=== PATIENT | female | born 1990 | race Caucasian/White ===

== ENCOUNTER 2019-02-12 09:37 | Emergency (ER) | payer SELFPAY ==
[~2019-02-12] VITALS: Ht 170.2 cm; Wt 69.0 kg
[2019-02-12 09:44] VITALS: BP 133/82
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
[2019-02-12] MEDS ORDERED: DIPH25CA61 PO (10:03)
--- NOTE | 2019-02-12 10:42 | NUR ---
PATIENT BACK FROM XRAY, PATIENT AMB WITH STEADY GAIT BACK TO [facility] WITH FREIGHT AGENT.
--- NOTE | 2019-02-12 11:47 | NUR ---
TASK RN:Patient/Caregiver given discharge instructions and they have confirmed that they understand the instructions. Patient ambulatory with steady gait.
== END 2019-02-12 13:05 | disposition home or self-care (01) ==
LOC: ED 11:50
DX: S43.52XA Sprain of left acromioclavicular joint, initial encounter (principal); Z90.710 Acquired absence of both cervix and uterus; Z87.891 Personal history of nicotine dependence; X58.XXXA Exposure to other specified factors, initial encounter; Y93.89 Activity, other specified; Y92.89 Other specified places as the place of occurrence of the external cause; Y99.8 Other external cause status
CPT/HCPCS: 29105; 99283

== ENCOUNTER 2019-04-14 10:52 | Emergency (ER) | payer SELFPAY ==
[~2019-04-14] VITALS: Ht 172.7 cm; Wt 78.4 kg
[~2019-04-14 10:52] MED LIST: DIPH25CA61 PO
[2019-04-14 10:58] VITALS: BP 155/98
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
--- NOTE | 2019-04-14 12:10 | NUR ---
DISCHARGE INSTRUCTIONS REVIEWED
== END 2019-04-14 12:16 | disposition home or self-care (01) ==
LOC: ED 11:34
DX: J06.9 Acute upper respiratory infection, unspecified (principal); R07.89 Other chest pain
CPT/HCPCS: 71046; 99283

== ENCOUNTER 2019-06-15 19:00 | Emergency (ER) | payer SELFPAY ==
[~2019-06-15] VITALS: Ht 170.2 cm; Wt 75.4 kg
--- NOTE | 2019-06-15 19:52 | NUR ---
PT AMBULATORY TO ROOM WITHS TEADY GAIT.
[2019-06-15] MEDS ORDERED: SLEEPING PILL (20:20)
[2019-06-15] MEDS ORDERED: CELEXA (20:20)
--- NOTE | 2019-06-15 20:21 | NUR ---
PT C/O INCREASE ALL OVER ABD PAIN OVER LAST COUPLE DAYS. PT HAD RECTAL BLEEDING FOR TWO DAY, 2 WEEKS AGO. HX BLEEDING DISORDER. CONNECTED TO MONITORING. PIV PLACED. LABS DRAWN. URINE COLLECTED AND SENT TO LAB. SPOUSE AT BEDSIDE. CALL LIGHT IN REACH.
[2019-06-15 20:28] LABS: HCG UR SG 1.017 (1.003-1.030); MICROSCOPIC NOT IND
[2019-06-15 20:30] LABS: CULTURE INDICATED? NO
[2019-06-15 20:50] LABS: BASOPHILS # (AUTO) 0.02 x10^3/uL (0-0.1); BASOPHILS % (AUTO) 0 % (0-1); EOSINOPHILS # (AUTO) 0.06 x10^3/uL (0-0.4); EOSINOPHILS % (AUTO) 1 % (1-7); LYMPHOCYTES # (AUTO) 2.26 x10^3/uL (1-3.4); LYMPHOCYTES % (AUTO) 31 % (22-44); MD NO; MEAN CORPUSCULAR HEMOGLOBIN 30.9 pg (27.0-34.8); MEAN CORPUSCULAR HGB CONC 33.6 g/dL (32.4-35.8); MEAN PLATELET VOLUME 8.4 fL (7.4-10.4); MONOCYTES # (AUTO) 0.71 x10^3/uL (0.2-0.8); MONOCYTES % (AUTO) 10 % (2-9); NEUTROPHILS # (AUTO) 4.37 x10^3/uL (1.8-6.8); NEUTROPHILS % (AUTO) 59 % (42-75); PLATELET COUNT 269 x10^3/uL (130-400); RED BLOOD COUNT 5.37 x10^6/uL (3.82-5.3); RED CELL DISTRIBUTION WIDTH 12.3 % (9.6-15.2)
[2019-06-15] MEDS ORDERED: MORPHINE SULFATE 4 MG/ML, 1ML ONE (20:52)
[2019-06-15] MEDS ORDERED: ONDANSETRON 2MG/ML, 2ML ONE (20:52)
--- NOTE | 2019-06-15 20:55 | NUR ---
PT TAKEN TO US
[2019-06-15] MEDS ORDERED: SODIUM CHLORIDE 0.9% 1,000ML IVBOLUS ONE (21:00)
[2019-06-15] MEDS ORDERED: SODIUM CHLORIDE FLUSH 10ML SYR IVF ONE (21:00)
[2019-06-15] MEDS ORDERED: ONDANSETRON 2MG/ML, 2ML IVPush ONE (21:00)
[2019-06-15] MEDS ORDERED: MORPHINE SULFATE 4 MG/ML, 1ML IVPush PRN (21:00)
[2019-06-15 21:01] LABS: INTERNATIONAL NORMALIZED RATIO 0.92 (0.93-1.1); PROTHROMBIN TIME 9.7 Seconds (9.6-11.5)
[2019-06-15 21:02] LABS: ALANINE AMINOTRANSFERASE 26 U/L (12-78); ALBUMIN 4.5 g/dL (3.4-5.0); ANION GAP 7 mmol/L (5-15); CHLORIDE 105 mmol/L (98-107); CREATININE 0.93 mg/dL (0.55-1.02)
[2019-06-15 21:04] LABS: ALKALINE PHOSPHATASE 78 U/L (45-117); BILIRUBIN,TOTAL 0.5 mg/dL (0.2-1.0); TOTAL PROTEIN 8.8 g/dL (6.4-8.2)
--- NOTE | 2019-06-15 21:14 | NUR ---
MEDS ADMIN PER JUN. PT RESTING COMFORTABLY ON GURWARWICK. ARIAN.
--- NOTE | 2019-06-15 21:23 | NUR ---
ALL RESULTS ARE BACK AT THIS TIME. CHART UP FOR RECHECK. THIS NURSE AT BEDSIDE DURING EKG THAT WAS COMPLETED BY DIE TURNER.
[2019-06-15 21:54] VITALS: BP 133/85
--- NOTE | 2019-06-15 21:54 | NUR ---
PT RESTING COMFORTABLY ON GURNEY. NADN. PT STATES PAIN IS BEARABLE AFTER PAIN MEDS.
--- NOTE | 2019-06-15 21:58 | NUR ---
REPORT GIVEN TO ALEX FIGUEROA
--- NOTE | 2019-06-15 22:00 | NUR ---
BRETT IN ROOM AT THIS TIME TO DISCUSS RESULTS WITH PT.
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
== END 2019-06-15 22:50 | disposition home or self-care (01) ==
LOC: ED 21:47
DX: K59.00 Constipation, unspecified (principal); R10.11 Right upper quadrant pain; R10.31 Right lower quadrant pain; Z87.891 Personal history of nicotine dependence; Z90.710 Acquired absence of both cervix and uterus
CPT/HCPCS: 36415; 74021; 76700; 80053; 81003; 81025; 83690; 85025; 85610; 85730; 93005; 96374; 96375; 99285; J2270; J2405; J7030

== ENCOUNTER 2019-09-11 17:24 | Emergency (ER) | payer MEDICAID ==
[~2019-09-11] VITALS: Ht 170.2 cm; Wt 74.0 kg
[~2019-09-11 17:24] MED LIST changes: +CELEXA; +SLEEPING PILL
[2019-09-11] MEDS ORDERED: MORPHINE SULFATE 4 MG/ML, 1ML ONE (17:52)
[2019-09-11] MEDS ORDERED: SILVER SULF. CRM 1% , 25GM TP ONE (18:00)
[2019-09-11] MEDS ORDERED: MORPHINE SULFATE 4 MG/ML, 1ML IVPush PRN (18:00)
--- NOTE | 2019-09-11 18:00 | NUR ---
WEAVING INSPECTOR: MEDICATED PT PER ORDERS FOR PAIN 01/18
[2019-09-11] MEDS ORDERED: SILVER SULF. CRM 1% , 25GM ONE (18:14)
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
--- NOTE | 2019-09-11 18:38 | NUR ---
PT STATES PAIN DECREASED, MEDICATION EFFECTION. PT REMAINS ON MONITORS, VSS.
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
[2019-09-11 19:47] VITALS: BP 127/68
--- NOTE | 2019-09-11 19:58 | NUR ---
Report received from HENRY Florian. This RN assuming care. Patient discharge instructions given. All questions and concerns addressed. Patient ambulatory with a steady gait.
== END 2019-09-11 19:56 ==
LOC: ED 19:17
DX: T22.211A Burn of second degree of right forearm, initial encounter (principal); T31.0 Burns involving less than 10% of body surface; X58.XXXA Exposure to other specified factors, initial encounter; Y93.89 Activity, other specified; Y92.098 Other place in other non-institutional residence as the place of occurrence of the external cause; Y99.8 Other external cause status
CPT/HCPCS: 16020; 96374; 99283; J2270

== ENCOUNTER 2019-11-06 09:58 | Emergency (ER) | payer MEDICAID ==
[~2019-11-06] VITALS: Ht 170.2 cm; Wt 71.6 kg
--- NOTE | 2019-11-06 10:34 | NUR ---
PT WITH MID BACK PAIN. UNABLE TO FULLY ROTATE HER NECK. ER PA AT BS.
[2019-11-06] MEDS ORDERED: HYDROcodone/APAP 5/325 TABLET ONE (10:53)
[2019-11-06] MEDS ORDERED: HYDROcodone/APAP 5/325 TABLET PO ONE (11:00)
--- NOTE | 2019-11-06 11:05 | NUR ---
PT MEDICATED PER ORDERS. CXR AT BS.
[2019-11-06 11:29] VITALS: BP 136/72
--- NOTE | 2019-11-06 11:30 | NUR ---
PT VERBALIZES SOME RELIEF AFTER NORCO. D/C INSTRUCTIONS & MEDS RV'WD WITH PT, SHE VERBALIZES UNDERSTANDING. RX GIVEN X1. INSTRUCTED PT TO RETURN TO ED IF SYMPTOMS NOT IMPROVING. AMBULATED OUT OF ED WITH FRIEND WITHOUT DIFFICULTY.
== END 2019-11-06 11:31 | disposition home or self-care (01) ==
LOC: ED 11:20
DX: S29.012A Strain of muscle and tendon of back wall of thorax, initial encounter (principal); M54.2 Cervicalgia; Z90.49 Acquired absence of other specified parts of digestive tract; Z90.89 Acquired absence of other organs; Z90.710 Acquired absence of both cervix and uterus; X58.XXXA Exposure to other specified factors, initial encounter; Y93.89 Activity, other specified; Y92.89 Other specified places as the place of occurrence of the external cause; Y99.8 Other external cause status
CPT/HCPCS: 71046; 99283

== ENCOUNTER 2020-01-06 14:11 | Emergency (ER) | payer MEDICAID ==
[~2020-01-06] VITALS: Ht 170.2 cm; Wt 73.0 kg
[2020-01-06 14:18] VITALS: BP 125/75
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
[2020-01-06] MEDS ORDERED: BICILLIN-LA 1,200,000 UNITS/2 ML IM ONE (15:00)
--- NOTE | 2020-01-06 15:25 | NUR ---
MED ARRIVED FROM PHARMACY-MEDICATED PER EMAR REVIEWED SXS TO WATCH FOR AND WHAT WOULD NECCESITATE RETURN TO CARE TO MONITOR FOR 20 MIN POST INJECTION FOR ABNORMAL REACTION
--- NOTE | 2020-01-06 15:41 | NUR ---
NO REACTION NOTED -DISCHARGED HOME
== END 2020-01-06 15:48 | disposition home or self-care (01) ==
LOC: ED 14:43
DX: J02.0 Streptococcal pharyngitis (principal); Z90.49 Acquired absence of other specified parts of digestive tract
CPT/HCPCS: 96372; 99283; J0561

== ENCOUNTER 2020-04-29 22:55 | Emergency (ER) | payer MEDICAID ==
[~2020-04-29] VITALS: Ht 172.7 cm; Wt 71.3 kg
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
--- NOTE | 2020-04-29 23:15 | NUR ---
ERP AT BEDSIDE
[2020-04-29] MEDS ORDERED: MECLIZINE CHEWABLE 25 MG TAB ONE (23:40)
[2020-04-29 23:46] LABS: BASOPHILS % (AUTO) 1 % (0-1); EOSINOPHILS % (AUTO) 2 % (1-7); LYMPHOCYTES % (AUTO) 38 % (22-44); MEAN CORPUSCULAR HEMOGLOBIN 31.6 pg (27.0-34.8); MEAN CORPUSCULAR HGB CONC 34.4 g/dL (32.4-35.8); MEAN PLATELET VOLUME 8.7 fL (7.4-10.4); MONOCYTES % (AUTO) 10 % (2-9); NEUTROPHILS % (AUTO) 49 % (42-75); PLATELET COUNT 225 x10^3/uL (130-400); RED BLOOD COUNT 4.54 x10^6/uL (3.82-5.3); RED CELL DISTRIBUTION WIDTH 12.9 % (9.6-15.2)
[2020-04-29 23:48] LABS: MD NO
[2020-04-29 23:52] LABS: ALBUMIN 3.9 g/dL (3.4-5.0); ANION GAP 5 mmol/L (5-15); CALCIUM 8.7 mg/dL (8.5-10.1); CHLORIDE 110 mmol/L (98-107); CREATININE 0.85 mg/dL (0.55-1.02)
[2020-04-30] MEDS ORDERED: MECLIZINE CHEWABLE 25 MG TAB PO ONE
[2020-04-30 00:05] VITALS: BP 112/72
--- NOTE | 2020-04-30 00:06 | NUR ---
PT SITTING UPRIGHT ON ARIAN ESPINAL VSS. SIGNIFICANT OTHER AT BEDSIDE. PT DENIES ANY NEEDS AT THIS TIME. CALL LIGHT AND PERSONAL BELONGINGS WITHIN REACH.
== END 2020-04-30 01:04 | disposition home or self-care (01) ==
LOC: ED 04-30 00:17
DX: H81.13 Benign paroxysmal vertigo, bilateral (principal); H69.93 Unspecified Eustachian tube disorder, bilateral; R21 Rash and other nonspecific skin eruption; Z90.710 Acquired absence of both cervix and uterus
CPT/HCPCS: 36415; 80048; 82040; 85025; 99283

== ENCOUNTER 2020-08-28 10:46 | Emergency (ER) | payer MEDICAID ==
[~2020-08-28] VITALS: Ht 172.7 cm; Wt 68.1 kg
[2020-08-28 11:06] VITALS: BP 150/88
--- NOTE | 2020-08-28 11:16 | NUR ---
Samina felix in [facility] - 08/28/20 at 1119 by [place] PERINATOLOGY PHYSICIAN: PT TO ROOM FROM JACEY ERVIN
--- NOTE | 2020-08-28 11:33 | NUR ---
ADMINISTRATIVE STAFF SUPERVISOR: PT TO ROOM FROM JACEY ERVIN.
[2020-08-28 12:10] LABS: BASOPHILS % (AUTO) 1 % (0-1); EOSINOPHILS % (AUTO) 1 % (1-7); LYMPHOCYTES % (AUTO) 26 % (22-44); MEAN CORPUSCULAR HEMOGLOBIN 31.5 pg (27.0-34.8); MEAN CORPUSCULAR HGB CONC 34.5 g/dL (32.4-35.8); MEAN PLATELET VOLUME 8.2 fL (7.4-10.4); MONOCYTES % (AUTO) 9 % (2-9); NEUTROPHILS % (AUTO) 64 % (42-75); PLATELET COUNT 234 x10^3/uL (130-400); RED BLOOD COUNT 4.76 x10^6/uL (3.82-5.3); RED CELL DISTRIBUTION WIDTH 13.1 % (9.6-15.2)
[2020-08-28 12:15] LABS: ANION GAP 5 mmol/L (5-15); CALCIUM 8.7 mg/dL (8.5-10.1); CHLORIDE 109 mmol/L (98-107); CREATININE 0.65 mg/dL (0.55-1.02)
[2020-08-28 12:17] LABS: MD NO
[2020-08-28 12:28] LABS: MICROSCOPIC NOT IND
== END 2020-08-28 14:08 | disposition home or self-care (01) ==
LOC: ED 11:38
DX: B34.9 Viral infection, unspecified (principal); R06.02 Shortness of breath; R94.31 Abnormal electrocardiogram [ECG] [EKG]
CPT/HCPCS: 36415; 71045; 80048; 81003; 82040; 85025; 85379; 93005; 99285